=== PATIENT | male | born 1970 | race Caucasian/White ===

== ENCOUNTER 2023-07-13 18:01 | Emergency (ER) | payer MEDICAID ==
[~2023-07-13] VITALS: Ht 162.6 cm; Wt 84.1 kg
[2023-07-13 19:28] VITALS: TEMP 98
[2023-07-13] MEDS ORDERED: AMLO-257 PO (20:24)
[2023-07-13] MEDS: AmLODIPine BESYLATE 5 MG TABLET PO ONE (20:24)
[2023-07-13 21:00] VITALS: BP 160/95; PULSE 80; RESP 18
== END 2023-07-13 21:09 | disposition home or self-care (01) ==
LOC: EMS 18:02
DX: T55.1X1A Toxic effect of detergents, accidental (unintentional), initial encounter (principal); I10 Essential (primary) hypertension; Y92.89 Other specified places as the place of occurrence of the external cause
CPT/HCPCS: 99285; Z7502; Z7610